=== PATIENT | male | born 1965 | race Caucasian/White ===

== ENCOUNTER 2019-01-22 08:55 | Emergency (ER) | payer BC ==
[2019-01-22] MEDS ORDERED: Fluorescein Opthalmic Strip ONE (09:05)
== END 2019-01-22 09:34 | disposition home or self-care (01) ==
LOC: BURERS 08:55
DX: H10.12 Acute atopic conjunctivitis, left eye (principal); I10 Essential (primary) hypertension; Z79.82 Long term (current) use of aspirin; Z79.899 Other long term (current) drug therapy
CPT/HCPCS: 99282